=== PATIENT | male | born 1950 | race Caucasian/White ===

== ENCOUNTER → 2016-03-20 | Outpatient (CLI) | payer OTHER ==
[~2016-03-20] MED LIST: ACTO30TA7 PO; AMLO2.5T PO; ASPI32ECTA PO; DONETAB5 PO; FARX1TAB2 PO; FISH100049 PO; GLYB5TA PO; HUMA100I5 SC; INSUDET SC; LISI40TAB PO; MELO15TA4 PO; MEMA1TAB PO; METF500T PO; MULT1TAB11 PO; PRIM250T PO; SIMV20TA2 PO; TRAZ10TA PO; TYLE500T78 PO; VITA-121 PO; VITA250L PO
[2016-03-20 10:58] LABS: MEAN CORPUSCULAR HEMOGLOBIN 29.1 pg (27.0-33.0); MEAN CORPUSCULAR HGB CONC 33.9 g/dl (32.0-36.5); MEAN CORPUSCULAR VOLUME 85.8 fl (80.0-96.0); RED CELL DISTRIBUTION WIDTH 14.8 % (11.5-14.5); WHITE BLOOD COUNT 4.5 K/mm3 (4.0-10.0)
[2016-03-20 11:04] LABS: INR 0.89
--- NOTE | 2016-03-20 11:13 | REP ---
Chest two views HISTORY: Sleep apnea Comparison: 10/28/2015 The lungs are clear. The heart is upper limits of normal in size. The pulmonary vasculature is normal in appearance. The bony structure is intact. IMPRESSION: No acute disease. Signed by Louis Romo MD 03/20/2016 11:05 A
[2016-03-20 11:31] LABS: ALBUMIN/GLOBULIN RATIO 1.54 (1.00-1.93); ALKALINE PHOSPHATASE 86 U/L (45-117); ALT/SGPT 30 U/L (12-78); ANION GAP 7 MEQ/L (8-16); AST/SGOT 19 U/L (15-37); BILIRUBIN,TOTAL 0.4 MG/DL (0.2-1.0); BLOOD UREA NITROGEN 20 MG/DL (7-18); CALCIUM LEVEL 9.1 MG/DL (8.8-10.2); CARBON DIOXIDE LEVEL 27 MEQ/L (21-32); CHLORIDE LEVEL 107 MEQ/L (98-107); CREATININE FOR GFR 1.14 MG/DL (0.70-1.30); GLOMERULAR FILTRATION RATE > 60.0 (>49); GLUCOSE, FASTING 169 MG/DL (80-110); POTASSIUM SERUM 4.6 MEQ/L (3.5-5.1); SODIUM LEVEL 141 MEQ/L (136-145); TOTAL PROTEIN 6.6 GM/DL (6.4-8.2)
--- NOTE | 2016-03-20 13:32 | ECGEPIP ---
Stationary ECG Study [facility] Test Date: 2016-03-20 Pat Name: CONSTANCE MOSELEY Department: Room: - Gender: M [address] Reporter: [place] : 1950 Requested By: Sky Durant Order Number: [id number] Reading MD: Steven Badillo Measurements Intervals [place] Rate: 63 P: 77 DE: 264 QRS: -23 QRSD: 124 T: 24 QT: 382 QTc: 391 Interpretive Statements SINUS RHYTHM WITH FIRST DEGREE AV BLOCK BORDERLINE LEFT AXIS DEVIATION RIGHT BUNDLE BRANCH BLOCK Electronically Signed On 03-20-2016 13:32:03 EST by Steven Badillo
== END ==
LOC: EDSTATUS 09:30 → M ADMPAT 09:31
PROVIDERS: ATTEND Orthopaedic Surgery
DX: Z01.818 Encounter for other preprocedural examination (principal)

== ENCOUNTER 2016-03-31 10:33 | Inpatient (IN) | payer OTHER ==
[2016-03-20 10:41] VITALS: BP 146/86
--- NOTE | 2016-03-27 16:55 | HPE ---
DATE OF ADMISSION: 03/31/2016 CHIEF COMPLAINT: Left knee pain. HISTORY OF PRESENT ILLNESS: This is a pleasant 66-year-old male with progressively worsening left knee pain and stiffness. He has failed to improve with conservative treatment. He has elected for surgery for his continued symptoms. He has pain with weightbearing activities and his activities of daily living. X-rays of his knee are notable for advanced osteoarthritis of the left knee joint. He has consented for a left total knee arthroplasty by Dr. Bhargav Arguello. Medical optimization was performed by KB Hall. ALLERGIES: No known drug allergies. CURRENT MEDICATIONS: - lisinopril 40 mg once a day - amlodipine 2.5 mg once a day - fish oil 1000 mg one capsule once a day - metformin HCl 500 mg two tablets twice a day - glyburide 5 mg two tablets twice a day - Actos 15 mg once a day - Farxiga 10 mg once a day - NovoLog FlexPen 100 units per mL - Levemir 100 units per mL solution 42 subcutaneous units at bedtime - trazodone 100 mg once at bedtime - primidone 250 mg twice a day - donepezil hydrochloride 10 mg once at bedtime - memantine HCl 5 mg twice a day - Mobic15 mg once a day - ibuprofen 200 mg one every six hours as needed - acetaminophen 500 mg one every six hours as needed - vitamin D3 5000 units once a day - vitamin B12 1000 mcg once a day - multivitamin PAST SURGICAL HISTORY: Left knee arthrotomy status post trauma in 1953, right knee arthroscopy in 1972, and colonoscopy in 2014. SOCIAL HISTORY: This gentleman is retired. He does not smoke or drink. FAMILY HISTORY: Noncontributory. REVIEW OF SYSTEMS: This patient denies chest pain, heart palpitations, cough, wheezing, difficulty breathing and shortness of breath. He denies abdominal pain, nausea, vomiting, diarrhea or constipation. He denies recent upper respiratory infection or urinary tract infection symptoms. He does complain of persistent pain in his left knee and pain with weightbearing activities in his left knee. PHYSICAL EXAMINATION: GENERAL: He is a well-nourished, well-developed, in no acute distress, adult male. He ambulates with a significant limp favoring his left lower extremity. He is not using assistive devices. VITAL SIGNS: He is 6 feet, 2 inches, weighs 345 pounds with a temperature of 96.7, blood pressure 168/78, pulse of 100, respirations of 20 with a body mass index (BMI) of 44.3. NECK: Supple without adenopathy or jugular venous distension. There were no carotid bruits appreciated upon auscultation. LUNGS: Clear to auscultation without rales or wheeze throughout. HEART: Regular rate and rhythm. ABDOMEN: Bowel sounds were present. EXTREMITIES: Examination of the knee revealed intact skin. The patient had decreased range of motion secondary to pain and stiffness. The limb is neurovascularly intact. LABORATORY DATA: Chest x-ray showed no acute cardiopulmonary disease processes. EKG showed sinus rhythm with first-degree AV block at 63 beats per minute. Nasal and sinus culture showed normal haley. CBC showed a red cell distribution width of 14.8, otherwise within normal limits. Sedimentation rate was 2, glucose 169, BUN 20, creatinine 1.14, sodium 141, potassium 4.6. UA showed 3+ glucose, otherwise within normal limits with a specific gravity 1.011. Prothrombin time 12.1, INR 0.89. IMPRESSION: Symptomatic osteoarthritis of the left knee joint. PLAN: Consented for a left total knee arthroplasty by Dr. Bhargav Arguello.
[~2016-03-31] VITALS: Ht 188 cm; Wt 152.4 kg
[~2016-03-31 10:33] MED LIST changes: -PRIM250T PO; +PRIM250T5 PO
[2016-03-31] MEDS ORDERED: ceFAZolin 2 GM/D5W 50 ML IV BAG (J0690) As Ordered ONE (10:53)
[2016-03-31] MEDS ORDERED: LR 1,000 ML IV SCH (11:00)
[2016-03-31] MEDS ORDERED: ACETAMINOPHEN 500 MG TAB PO ONE (11:00)
[2016-03-31] MEDS ORDERED: ROPIvacaine 0.5% 30 ML INJECTION (J2795) As Ordered ONE (12:30)
[2016-03-31] MEDS ORDERED: BUPIVACAINE HCL 0.25% 10 ML VIAL As Ordered ONE (12:30)
[2016-03-31] MEDS ORDERED: TRANEXAMIC ACID 100 MG/ML 10ML VIAL As Ordered ONE (12:30)
[2016-03-31] MEDS ORDERED: ceFAZolin 1GM INJ (J0690) As Ordered ONE (12:31)
[2016-03-31] MEDS ORDERED: EPINEPHrine INJ 1 MG/ML 1ML VIAL/AMP As Ordered ONE (12:31)
[2016-03-31] MEDS ORDERED: fentaNYL 100 MCG/2 ML INJECTION (J3010) As Ordered ONE ×3 (12:49→14:21)
[2016-03-31] MEDS ORDERED: MIDAZOLAM INJ 2 MG/2 ML VIAL (J2250) As Ordered ONE ×2 (12:49→12:57)
[2016-03-31] MEDS ORDERED: PROPOFOL 200 MG/20 ML VIAL As Ordered ONE ×2 (12:59→15:35)
[2016-03-31] MEDS ORDERED: LIDOCAINE 2% INJ 100 MG/5 ML SDV (FOR ANES.) As Ordered ONE (12:59)
[2016-03-31] MEDS ORDERED: fentaNYL 100 MCG/2 ML INJECTION (J3010) IV ONE (14:00)
[2016-03-31] MEDS ORDERED: MIDAZOLAM INJ 2 MG/2 ML VIAL (J2250) IV ONE (14:00)
[2016-03-31] MEDS ORDERED: BUPIVACAINE HCL 0.5% 10 ML VIAL As Ordered ONE (14:20)
[2016-03-31] MEDS ORDERED: METOCLOPRAMIDE INJ 10MG/2ML VIAL (J2765) As Ordered ONE (15:13)
[2016-03-31] MEDS ORDERED: ONDANSETRON 4MG/2ML VIAL (J2405) As Ordered ONE (15:35)
[2016-03-31] MEDS ORDERED: MORPHINE PCA 1MG/ML 100ML CADD As Ordered ONE (16:24)
[2016-03-31] MEDS ORDERED: FLEET ENEMA PR PRN (17:00)
[2016-03-31] MEDS ORDERED: PATIENT IS CURRENTLY ON AN ON-Q PAIN BUSTER PAIN RELIEF SYSTEM XX SCH (17:15)
[2016-03-31] MEDS ORDERED: diphenhydrAMINE INJ 50MG/ML VIAL (J1200) IV PRN (17:30)
[2016-03-31] MEDS ORDERED: ONDANSETRON 4MG/2ML VIAL (J2405) IV PRN (17:30)
[2016-03-31] MEDS ORDERED: EPIDURAL/PCA KEYS XX PRN (17:30)
[2016-03-31] MEDS ORDERED: NALOXONE INJ 0.4 MG/1 ML VIAL (J2310) IV PRN (17:30)
[2016-03-31] MEDS ORDERED: NALBUPHINE HCL 10 MG/ML AMP (J2300) IV PRN (17:30)
[2016-03-31] MEDS ORDERED: MORPHINE PCA 1MG/ML 100ML CADD IV PRN (17:30)
[2016-03-31 17:50] VITALS: BP 164/72
[2016-03-31 18:30] VITALS: BP 192/89
[2016-03-31] MEDS: HumuLIN R (REGULAR) INSULIN (NovoLIN R) **100U/ML** PER UNIT SC SCH ×2 (19:21→21:25)
[2016-03-31 19:30] VITALS: BP_SYST 177; BP_SYST 189; BP_DIAS 87; BP_DIAS 88
[2016-03-31 20:30] VITALS: BP 177/87
[2016-03-31] MEDS: SENOKOT S TAB PO SCH (20:31)
[2016-03-31] MEDS: LR 1,000 ML IV SCH (20:31)
[2016-03-31] MEDS ORDERED: WARFARIN SOD 5 MG TAB PO SCH (21:00)
[2016-03-31] MEDS: MEMANTINE 5MG TABLET (NAMENDA) PO SCH (21:00)
[2016-03-31] MEDS ORDERED: ATORVASTATIN 20 MG TAB PO SCH (21:00)
[2016-03-31] MEDS: traZODone 100 MG TAB PO SCH (21:00)
--- NOTE | 2016-03-31 21:22 | CR ---
DATE OF CONSULTATION: 03/31/2016 CONSULTATION REPORT FOR: Dr. Sky Arguello PRIMARY CARE PROVIDER: Sophie Flores HEAD WAITRESS: Dr. Tijerina UROLOGIST: Dr. Garcia REASON FOR CONSULTATION: Medical management. HISTORY OF THE PRESENT ILLNESS: This is a 66-year-old male patient with underlying medical history of hypertension, dyslipidemia, insulin-dependent type 2 diabetes, obesity, coronary artery disease, cerebrovascular accident 4 years ago with mild right-sided residual weakness. The patient was admitted under orthopedic service for left total knee replacement surgery by Dr. Sky Arguello. Currently, the patient is status post surgery. Denies any chest pain, pressure or discomfort. Denies any shortness of breath. Comfortable. 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 Baseline ambulatory. ALLERGIES: The patient denies any drug or medication allergies. PAST MEDICAL HISTORY: Hypertension. Dyslipidemia. Cerebrovascular accident. Type 2 insulin-dependent diabetes. Obesity. Coronary artery disease. PAST SURGICAL HISTORY: Left knee arthroscopy, status post trauma 1952. Right knee arthroscopy 1972. Colonoscopy 2014. SOCIAL HISTORY: Retired. Quit smoking 40 years ago and does not drink alcoholic beverages. FAMILY HISTORY: Noncontributory. REVIEW OF SYSTEMS: 11-point review of systems was negative except for those mentioned in the history of the present illness. Persistent pain with left knee. Pain with weightbearing activity. HOME MEDICATIONS: - acetaminophen 500 mg by mouth as needed - Norvasc 2.5 mg by mouth nightly - aspirin 325 mg by mouth daily - vitamin D 5000 units by mouth daily - vitamin B12 1000 mcg by mouth daily - Farxiga 5 mg by mouth daily - donepezil 5 mg by mouth daily - fish oil one capsule by mouth daily - Glyburide 10 mg by mouth twice a day - Levemir insulin 42 units by mouth subcu nightly - NovoLog insulin via sliding scale before food, usually around 12 units - lisinopril 40 mg by mouth daily - meloxicam 15 mg by mouth daily - Memantine 5 mg by mouth twice a day - metformin 1000 mg by mouth twice a day - multivitamin one capsule by mouth daily - Actos 15 mg by mouth daily - primidone 250 mg by mouth twice a day - Zocor 20 mg by mouth daily - trazodone 100 mg by mouth nightly PHYSICAL EXAMINATION: GENERAL: Patient alert and oriented times three, in no acute distress. HEENT: Normocephalic, atraumatic. PULMONARY: Bilaterally clear to auscultation. CARDIAC: Regular rate and rhythm. Normal S1, S2. ABDOMEN: Soft, nontender, nondistended. Positive bowel sounds. EXTREMITIES: Bilateral dorsalis pedis (DP), posterior tibial (PT) pulses 2+. No leg edema bilateral lower extremities. Dressing clean, dry and intact. ASSESSMENT AND PLAN: This is a 66-year-old male patient with underlying medical history of hypertension, diabetes type 2, dyslipidemia, coronary artery disease, cerebrovascular disease, osteoarthritis, admitted under orthopedic service for left total knee replacement. Procedure done by Dr. Sky Arguello. Problems: 1. Osteoarthritis. Status post left total knee replacement, done by Dr. Sky Arguello. Deep vein thrombosis prophylaxis, pain regimen, physical therapy as per surgical team. Perioperative management as per surgical team. Patient currently on Coumadin for DVT prophylaxis. Bowel regimen has been added. 2. Hypertension. Continue Norvasc, lisinopril. Monitor kidney functions. Adjust medication as needed. 3. Type 2 insulin-dependent diabetes. Withholding oral medications. Continue Levemir for basal coverage as well as mealtime coverage. Adjust as needed. 4. Dyslipidemia. Continue home medication, statin. 5. Cerebrovascular disease. Patient on Coumadin for DVT prophylaxis. Will cut aspirin to 81 mg and continue Coumadin. Continue statin. Monitor blood pressure. 6. Coronary artery disease. Continue blood pressure medication as ordered. Continue aspirin, statin. Monitor blood sugars. 7. Deep vein thrombosis (DVT) prophylaxis. The patient is on Coumadin as per primary team. DISPOSITION: As per primary team.
[2016-03-31] MEDS: PRIMIDONE 250 MG TAB PO SCH (21:24)
[2016-03-31] MEDS: LEVEMIR (INSULIN DETEMIR) 1 UNITS/0.01ML SC SCH (21:26)
[2016-03-31 21:30] VITALS: BP 170/77
[2016-03-31] MEDS: ACETAMINOPHEN TAB 650MG DOSE (2X325MG) PO PRN (22:21)
[2016-04-01] MEDS: ACETAMINOPHEN TAB 650MG DOSE (2X325MG) PO PRN (02:05)
[2016-04-01 02:30] VITALS: BP 158/75
[2016-04-01] MEDS: LR 1,000 ML IV SCH (05:30)
[2016-04-01 06:00] VITALS: BP 173/81
[2016-04-01] MEDS ORDERED: ONDANSETRON 4 MG TAB (S0181) PO PRN (06:30)
[2016-04-01 06:49] LABS: MEAN CORPUSCULAR HEMOGLOBIN 29.2 pg (27.0-33.0); MEAN CORPUSCULAR HGB CONC 34.2 g/dl (32.0-36.5); MEAN CORPUSCULAR VOLUME 85.4 fl (80.0-96.0); RED CELL DISTRIBUTION WIDTH 13.8 % (11.5-14.5); WHITE BLOOD COUNT 7.1 K/mm3 (4.0-10.0)
[2016-04-01 07:04] LABS: ANION GAP 9 MEQ/L (8-16); BLOOD UREA NITROGEN 19 MG/DL (7-18); CARBON DIOXIDE LEVEL 24 MEQ/L (21-32); CHLORIDE LEVEL 105 MEQ/L (98-107); CREATININE FOR GFR 1.01 MG/DL (0.70-1.30); GLOMERULAR FILTRATION RATE > 60.0 (>49); GLUCOSE, FASTING 161 MG/DL (80-110); INR 1.09; POTASSIUM SERUM 4.2 MEQ/L (3.5-5.1); SODIUM LEVEL 138 MEQ/L (136-145)
--- NOTE | 2016-04-01 07:21 | RO ---
DATE OF PROCEDURE: 03/31/2016 PREOPERATIVE DIAGNOSIS: Left knee valgus degenerative arthritis. POSTOPERATIVE DIAGNOSIS: Left knee valgus degenerative arthritis. PROCEDURE: Left total knee arthroplasty using a size 5 cruciate retaining femoral component with size 5 tibial tray with 10 mm rotating platform polyethylene insert and a 35 mm polyethylene button. All components were cemented. The prosthesis was made by [employer]. It was a PFC knee. SURGEON: Sky Cook MD PRINCIPAL JAVA DEVELOPER: Aline Moon ANESTHESIA: Spinal. COMPLICATIONS: None. ESTIMATED BLOOD LOSS: Less than 20 mL. SPECIMENS: Joint surface. DRAINS: One PainBuster. DESCRIPTION OF PROCEDURE: Antibiotics were given intravenously preoperatively, then a successful spinal anesthetic was induced. Tourniquet placed on left upper thigh and not inflated. Left lower extremity was prepped and draped in the usual sterile fashion. Leg elevated, and then after appropriate time out the tourniquet was inflated. A longitudinal incision was made. We tried to incorporate the previous scar for a medial parapatellar approach to the knee. Limited subperiosteal dissection around the proximal medial portion of the tibia was performed because of his overall valgus alignment. He did have significant scarring along the medial and lateral capsules making it somewhat difficult to dissect but eventually we were able to reestablish normal tissue planes. The patella was everted and the knee flexed. The cartilage around the medial femoral condyle was denuded to make sure that the distal femoral cutting jig would sit flush against the two condyles, and then we drilled down the center of the femoral canal, then the intramedullary joe with the distal femoral cutting jig applied was placed. It was set at 5 degree valgus cut for a left knee at 10 mm resection level. It is noteworthy that his femoral canal was quite capacious and the joe had some play within the femoral canal. The jig was pinned into position. The distal femoral cuts performed. AP sizing jig measured right on a #5. The 3 degree external rotation block was placed and the 4-in-1 block applied, and Danika's line and an epicondylar access appeared to be parallel to the floor and Danika's line was seen to be 90 degrees the external rotation seemed to be appropriate. We then performed the anterior, posterior, chamfer cuts taking great care to protect the surrounding soft tissues. We then exposed the proximal tibia and used the extramedullary alignment jig to be sure we were parallel to the mechanical axis. We measured off both the lateral tibial condyle and the medial tibial condyle. It came out at about 4 mm resection level on each side and about symmetric and thus, the block was pinned in position. Secondary check with the extramedullary joe confirmed we were parallel and thus, we performed the proximal tibial osteotomy. We then placed the lamina digital marketing project manager laterally and performed a completion medial meniscectomy and debridement of the posterior medial osteophytes, then placed the lamina digital marketing project manager medially and performed a debridement of the posterior lateral osteophytes and completion of the lateral meniscectomy. Spacer blocks were then applied and actually the 10 mm in flexion and 11 mm in extension fit nicely. I was surprised that there was not excessive lateral tightness. We had a fairly balanced knee to varus, valgus stress testing both in flexion and in extension. Thus, I felt the cuts were appropriate. The posterior cruciate ligament (PCL) was firm. There was no need to do a PCL resection, I do not feel, and thus at this point, I exposed the proximal tibia, sized for a #5 tibial tray, which is pinned, reamed and broach into position, and placed the polyethylene, then placed the femoral component and brought the knee into extension. Again, it was very stable to varus, valgus stress testing in both flexion and in extension. Then, we brought the knee into extension, everted the patella and performed patellar osteotomy. Sized for a 35 button. The lug holes were drilled. Trial patellar button was placed and the patellofemoral tracking was actually anatomic. Thus, I could flex the knee up and there was not any excessive liftoff of the tibial tray anteriorly. Thus, I felt this was the appropriate size and components used. All the trials were removed after drilling the lug holes for the femur. Then, Aline Moon mixed the cement on the back table; also was helpful throughout the operation to help manage this fairly large leg, help with appropriate soft tissue retraction and manipulating the knee as needed, helping to close the wound, amongst other tasks to help me perform the operation smoothly and efficiently. I prepared the bony surfaces for cementing by copiously pulsatile lavage irrigating out the knee joint, drying all the surfaces thoroughly, cemented the tibial tray and removed excess cement, placed the polyethylene. Then, we cemented the femoral component and removed excess cement, brought the knee into extension and then cemented the patellar button, held it with a clamp until the cement had hardened. Copious amount of pulsatile lavage irrigant solution was placed in the knee as we were waiting for the cement to harden. Then, we placed the tranexamic acid. We then closed the apex of the tendon incision with two #1 PDS sutures. The medial parapatellar area was closed with a single #1 PDS suture. Then, we closed the capsule with a running double armed #1 Stratafix, then released the tourniquet, placed the PainBuster catheter, copiously pulsatile lavage, irrigated out the subdermal tissues and then closed the deep subdermal tissues with interrupted #2-0 PDS suture. The skin was closed with ene, covered by Adaptic, dry sterile bulky dressing. He was then transferred to the recovery room in stable condition. There were no intraoperative complications. MARVEL
[2016-04-01] MEDS: HumuLIN R (REGULAR) INSULIN (NovoLIN R) **100U/ML** PER UNIT SC SCH ×4 (07:56→21:00)
[2016-04-01] MEDS: CYANOCOBALAMIN 250 MCG TABLET PO SCH (07:57)
[2016-04-01] MEDS: PRIMIDONE 250 MG TAB PO SCH ×2 (07:57→21:01)
[2016-04-01] MEDS: MEMANTINE 5MG TABLET (NAMENDA) PO SCH ×2 (07:58→21:02)
[2016-04-01] MEDS: OCUVITE 1 TAB PO SCH (07:58)
[2016-04-01] MEDS: LISINOPRIL 40 MG TAB PO SCH (07:58)
[2016-04-01] MEDS: VITAMIN D 1,000 INTERNATIONAL UNITS TABLET PO SCH (07:58)
[2016-04-01] MEDS: SENOKOT S TAB PO SCH ×2 (07:58→21:02)
[2016-04-01] MEDS: DONEPEZIL 5 MG TAB PO SCH (07:59)
[2016-04-01] MEDS: MOM 30ML SUSPENSION UDC PO SCH (07:59)
[2016-04-01] MEDS: MIRALAX *UNIT DOSE* 17GM PACKET PO SCH (08:00)
[2016-04-01] MEDS: PERCOCET 5MG/325MG TAB PO PRN ×4 (08:00→21:50)
[2016-04-01] MEDS: ASPIRIN 81 MG ENTERIC TAB PO SCH (08:03)
[2016-04-01 10:00] VITALS: BP 152/70
[2016-04-01] MEDS ORDERED: ROPIvacaine 0.5% 30 ML INJECTION (J2795) ONE (10:10)
[2016-04-01] MEDS ORDERED: dexameTHASONE 10 MG/1 ML VIAL PRES.FREE (J1100) ONE (10:10)
--- NOTE | 2016-04-01 12:04 | REP ---
AP LATERAL LEFT KNEE, TWO VIEWS: HISTORY: Knee replacement. COMPARISON: 02/27/2016 The patient is status post left total knee replacement. There is no acute fracture or dislocation. Surgical ene and subcutaneous air are present in the overlying soft tissue. IMPRESSION: The patient is status post left total knee replacement. There is anatomic alignment. Signed by Louis Romo MD 04/01/2016 12:13 P
[2016-04-01 14:00] VITALS: BP 143/66
[2016-04-01] MEDS ORDERED: WARFARIN SOD 5 MG TAB PO ONE (17:00)
[2016-04-01] MEDS: traZODone 100 MG TAB PO SCH (21:00)
[2016-04-01] MEDS: SIMVASTATIN 20 MG TAB PO SCH (21:01)
[2016-04-01] MEDS: LEVEMIR (INSULIN DETEMIR) 1 UNITS/0.01ML SC SCH (21:04)
[2016-04-01 22:18] VITALS: BP 159/71
[2016-04-02] VITALS: BP 143/66
[2016-04-02] MEDS: PERCOCET 5MG/325MG TAB PO PRN ×5 (04:36→22:35)
[2016-04-02 06:08] VITALS: BP 135/63
[2016-04-02 07:25] LABS: INR 1.27
[2016-04-02 07:26] LABS: MEAN CORPUSCULAR HEMOGLOBIN 28.5 pg (27.0-33.0); MEAN CORPUSCULAR HGB CONC 33.4 g/dl (32.0-36.5); MEAN CORPUSCULAR VOLUME 85.4 fl (80.0-96.0); RED CELL DISTRIBUTION WIDTH 13.8 % (11.5-14.5); WHITE BLOOD COUNT 7.4 K/mm3 (4.0-10.0)
[2016-04-02 07:41] LABS: ANION GAP 10 MEQ/L (8-16); BLOOD UREA NITROGEN 15 MG/DL (7-18); CARBON DIOXIDE LEVEL 25 MEQ/L (21-32); CHLORIDE LEVEL 102 MEQ/L (98-107); CREATININE FOR GFR 1.02 MG/DL (0.70-1.30); GLOMERULAR FILTRATION RATE > 60.0 (>49); GLUCOSE, FASTING 156 MG/DL (80-110); POTASSIUM SERUM 3.9 MEQ/L (3.5-5.1); SODIUM LEVEL 137 MEQ/L (136-145)
[2016-04-02] MEDS: HumuLIN R (REGULAR) INSULIN (NovoLIN R) **100U/ML** PER UNIT SC SCH ×4 (08:03→21:00)
[2016-04-02] MEDS: VITAMIN D 1,000 INTERNATIONAL UNITS TABLET PO SCH (08:04)
[2016-04-02] MEDS: OCUVITE 1 TAB PO SCH (08:04)
[2016-04-02] MEDS: MIRALAX *UNIT DOSE* 17GM PACKET PO SCH (08:04)
[2016-04-02] MEDS: MOM 30ML SUSPENSION UDC PO SCH (08:04)
[2016-04-02] MEDS: CYANOCOBALAMIN 250 MCG TABLET PO SCH (08:04)
[2016-04-02] MEDS: SENOKOT S TAB PO SCH ×2 (08:05→21:24)
[2016-04-02] MEDS: LISINOPRIL 40 MG TAB PO SCH (08:05)
[2016-04-02] MEDS: ASPIRIN 81 MG ENTERIC TAB PO SCH (08:05)
[2016-04-02] MEDS: DONEPEZIL 5 MG TAB PO SCH (08:05)
[2016-04-02] MEDS: PRIMIDONE 250 MG TAB PO SCH ×2 (08:05→21:24)
[2016-04-02] MEDS: MEMANTINE 5MG TABLET (NAMENDA) PO SCH ×2 (08:05→21:24)
--- NOTE | 2016-04-02 11:28 | IPNPDOC ---
Assessment/Plan Date Seen The patient was seen on 04/02/16. Problems Problems: (1) Status post left knee replacement Status: Acute Problem Text: had elective knee arthroplasty done for advanced osteoarthritis. procedure was uneventful. pain control and dvt prophylaxis as per ortho protocol (2) KRISHNA on CPAP Status: Chronic (3) Obesities, morbid Status: Chronic (4) Hypertension Status: Chronic Problem Text: continue lisinopril and amlodipine (5) Diabetes Status: Chronic Problem Text: continue insulin and sulphonurea. (6) Dementia Status: Chronic Problem Text: possibly has multiinfarct dementia with history of stroke and tias. will continue with donepezil and memantine. (7) History of CVA (cerebrovascular accident) Status: Chronic Problem Text: continue asa, can hold plavix while pat on dvt prophylaxis with coumadin. (8) Dyslipidemia Status: Chronic Problem Text: continue simvastatin. (9) CAD (coronary artery disease) Status: Chronic Plan / VTE VTE Prophylaxis Ordered?: Yes Subjective Review of Systems CC/HPI The patient is a 66-year-old male admitted with a reason for visit of Left Knee Arthritis. Events since last encounter no complaints this morning. Objective Physical Examination General Exam: Positive: Alert, No Acute Distress Eye Exam: Positive: Conjunctiva & lids normal, EOMI, PERRLA, Negative: Sclera icteric ENT Exam: Positive: Atraumatic, Mucous membr. moist/pink, Pharynx Normal Neck Exam: Positive: Supple, Negative: JVD, thyromegaly Chest Exam: Positive: Clear to auscultation, Normal air movement Heart Exam: Positive: Normal S1, Normal S2, Rate Normal, Regular Rhythm, Negative: Murmurs, Rubs Abdomen Exam: Positive: Normal bowel sounds, Soft, Negative: Hepatospenomegaly, Tenderness Extremity Exam: Positive: Normal pulses, Negative: Clubbing, Cyanosis, Edema Vital Signs/I&O Vital Signs Date Time Temp Pulse Resp B/P Pulse Ox O2 Delivery O2 Flow Rate FiO2 04/02/16 08:56 18 04/02/16 06:08 99.9 77 135/63 91 Room Air 04/01/16 06:00 2.0 I&O- Last 24 Hours up to 6 AM 04/02/16 06:00 Intake Total 2360 ml Output Total 1675 ml Balance 685 ml Laboratory Data Labs 24H Laboratory Tests 2 04/01/16 11:45: Bedside Glucose (Misc Panel) 163H 04/01/16 17:13: Bedside Glucose (Misc Panel) 137H 04/01/16 19:36: Bedside Glucose (Misc Panel) 142H 04/02/16 05:52: Bedside Glucose (Misc Panel) 163H 04/02/16 06:21: Anion Gap 10, Blood Urea Nitrogen 15, Creatinine 1.02, Sodium Level 137, Potassium Level 3.9, Chloride Level 102, Carbon Dioxide Level 25, Calcium Level 8.0L, Glomerular Filtration Rate > 60.0, Prothromb Time International Ratio 1.27 , Prothrombin Time 16.0H CBC/BMP Laboratory Tests 04/02/16 06:21 Calcium Level 8.0 L, Red Blood Count 4.71, Mean Corpuscular Volume 85.4, Mean Corpuscular Hemoglobin 28.5, Mean Corpuscular Hemoglobin Concent 33.4, Red Cell Distribution Width 13.8 FSBS Laboratory Tests Test 04/01/16 11:45 04/01/16 17:13 04/01/16 19:36 04/02/16 05:52 Range/Units Bedside Glucose (Misc Panel) 163 137 142 163 80-115 MG/DL ROWAN PIEDRA MD Apr 02, 2016 11:28
[2016-04-02 14:00] VITALS: BP 140/63
[2016-04-02] MEDS ORDERED: WARFARIN SOD 7.5 MG TAB PO ONE (17:00)
[2016-04-02] MEDS: traZODone 100 MG TAB PO SCH (21:00)
[2016-04-02 21:24] VITALS: BP 180/85
[2016-04-02] MEDS: LEVEMIR (INSULIN DETEMIR) 1 UNITS/0.01ML SC SCH (21:24)
[2016-04-02] MEDS: SIMVASTATIN 20 MG TAB PO SCH (21:25)
[2016-04-02 22:00] VITALS: BP 180/85
[2016-04-03] MEDS: PERCOCET 5MG/325MG TAB PO PRN ×2 (02:45→08:18)
[2016-04-03 06:00] VITALS: BP 139/63
[2016-04-03 06:52] LABS: MEAN CORPUSCULAR HEMOGLOBIN 29.5 pg (27.0-33.0); MEAN CORPUSCULAR HGB CONC 33.7 g/dl (32.0-36.5); MEAN CORPUSCULAR VOLUME 87.5 fl (80.0-96.0); RED CELL DISTRIBUTION WIDTH 14.8 % (11.5-14.5); WHITE BLOOD COUNT 6.9 K/mm3 (4.0-10.0)
[2016-04-03 07:07] LABS: ANION GAP 9 MEQ/L (8-16); BLOOD UREA NITROGEN 15 MG/DL (7-18); CALCIUM LEVEL 8.2 MG/DL (8.8-10.2); CARBON DIOXIDE LEVEL 26 MEQ/L (21-32); CHLORIDE LEVEL 102 MEQ/L (98-107); CREATININE FOR GFR 1.03 MG/DL (0.70-1.30); GLOMERULAR FILTRATION RATE > 60.0 (>49); GLUCOSE, FASTING 173 MG/DL (80-110); INR 1.38; POTASSIUM SERUM 4.1 MEQ/L (3.5-5.1); SODIUM LEVEL 137 MEQ/L (136-145)
[2016-04-03] MEDS: HumuLIN R (REGULAR) INSULIN (NovoLIN R) **100U/ML** PER UNIT SC SCH (07:30)
[2016-04-03] MEDS ORDERED: PERC5TAB6 PO (07:39)
[2016-04-03] MEDS ORDERED: COUM2.5T11 PO (07:39)
[2016-04-03] MEDS ORDERED: ENOXAPARIN 40 MG/0.4 ML SYRINGE (J1650) SC ONE (08:00)
[2016-04-03] MEDS: CYANOCOBALAMIN 250 MCG TABLET PO SCH (08:15)
[2016-04-03] MEDS: ASPIRIN 81 MG ENTERIC TAB PO SCH (08:15)
[2016-04-03] MEDS: OCUVITE 1 TAB PO SCH (08:16)
[2016-04-03] MEDS: DONEPEZIL 5 MG TAB PO SCH (08:16)
[2016-04-03] MEDS: MEMANTINE 5MG TABLET (NAMENDA) PO SCH (08:16)
[2016-04-03] MEDS: LISINOPRIL 40 MG TAB PO SCH (08:16)
[2016-04-03] MEDS: VITAMIN D 1,000 INTERNATIONAL UNITS TABLET PO SCH (08:16)
[2016-04-03] MEDS: PRIMIDONE 250 MG TAB PO SCH (08:17)
[2016-04-03] MEDS: MIRALAX *UNIT DOSE* 17GM PACKET PO SCH (09:00)
[2016-04-03] MEDS: MOM 30ML SUSPENSION UDC PO SCH (09:00)
[2016-04-03] MEDS: SENOKOT S TAB PO SCH (09:00)
== END 2016-04-03 12:32 | disposition home health service (06) | DRG 470 ==
LOC: M OR 10:33 → M MS5PR 16:28
PROVIDERS: ADMIT Orthopaedic Surgery; ATTEND Orthopaedic Surgery
PROC: 0SRD0J9 Replacement of Left Knee Joint with Synthetic Substitute, Cemented, Open Approach (ICD-10-PCS; principal; 2016-03-31 12:10)
DX: M17.12 Unilateral primary osteoarthritis, left knee (principal); Z68.42 Body mass index [BMI] 45.0-49.9, adult; R26.89 Other abnormalities of gait and mobility; E11.9 Type 2 diabetes mellitus without complications; I10 Essential (primary) hypertension; E78.2 Mixed hyperlipidemia; G47.33 Obstructive sleep apnea (adult) (pediatric); F03.90 Unspecified dementia, unspecified severity, without behavioral disturbance, psychotic disturbance, mood disturbance, and anxiety; I69.318 Other symptoms and signs involving cognitive functions following cerebral infarction; E66.01 Morbid (severe) obesity due to excess calories; R25.1 Tremor, unspecified; Z79.84 Long term (current) use of oral hypoglycemic drugs; Z79.4 Long term (current) use of insulin; Z79.899 Other long term (current) drug therapy; Z86.73 Personal history of transient ischemic attack (TIA), and cerebral infarction without residual deficits; Z87.891 Personal history of nicotine dependence

== ENCOUNTER → 2016-04-07 | Outpatient (REF) | payer OTHER ==
[~2016-04-07] MED LIST changes: +COUM2.5T11 PO; +PERC5TAB6 PO
[2016-04-07 14:00] LABS: INR 1.57
== END ==
LOC: M SHH 12:55
PROVIDERS: ATTEND Nurse Practitioner Family
DX: Z51.81 Encounter for therapeutic drug level monitoring (principal); Z79.01 Long term (current) use of anticoagulants

== ENCOUNTER → 2016-04-10 | Outpatient (REF) | payer OTHER ==
[2016-04-10 11:46] LABS: INR 1.65
== END ==
LOC: M LAB REF 11:13
PROVIDERS: ATTEND Nurse Practitioner Family
DX: Z79.01 Long term (current) use of anticoagulants (principal)

== ENCOUNTER → 2016-04-14 | Outpatient (REF) | payer OTHER ==
[2016-04-14 16:00] LABS: INR 1.4
== END ==
LOC: M LABDRAW1 15:39
PROVIDERS: ATTEND Nurse Practitioner Family
DX: Z79.01 Long term (current) use of anticoagulants (principal)

== ENCOUNTER → 2016-04-17 | Outpatient (REF) | payer OTHER ==
[2016-04-17 12:42] LABS: INR 1.54
== END ==
LOC: M SHH 12:05
PROVIDERS: ATTEND Nurse Practitioner Family
DX: Z51.81 Encounter for therapeutic drug level monitoring (principal); Z79.01 Long term (current) use of anticoagulants

== ENCOUNTER → 2016-04-21 | Outpatient (REF) | payer OTHER ==
[2016-04-21 15:30] LABS: INR 1.79
== END ==
LOC: M SHH 15:05
PROVIDERS: ATTEND Nurse Practitioner Family
DX: Z51.81 Encounter for therapeutic drug level monitoring (principal); Z79.01 Long term (current) use of anticoagulants

== ENCOUNTER → 2016-04-24 | Outpatient (REF) | payer OTHER ==
[2016-04-24 15:13] LABS: INR 1.77
== END ==
LOC: M SHH 14:47
PROVIDERS: ATTEND Nurse Practitioner Family
DX: Z79.01 Long term (current) use of anticoagulants (principal)

== ENCOUNTER → 2016-04-28 | Outpatient (REF) | payer OTHER ==
[2016-04-28 15:51] LABS: INR 1.85
== END ==
LOC: M SHH 14:39
PROVIDERS: ATTEND Nurse Practitioner Family
DX: Z79.01 Long term (current) use of anticoagulants (principal)

== ENCOUNTER → 2016-06-13 | Outpatient (REF) | payer OTHER ==
[2016-06-13 15:45] LABS: ALBUMIN 4.1 GM/DL (3.2-5.2); ALBUMIN/GLOBULIN RATIO 1.37 (1.00-1.93); ALKALINE PHOSPHATASE 91 U/L (45-117); ALT/SGPT 22 U/L (12-78); ANION GAP 9 MEQ/L (8-16); AST/SGOT 18 U/L (15-37); BILIRUBIN,TOTAL 0.4 MG/DL (0.2-1.0); BLOOD UREA NITROGEN 17 MG/DL (7-18); CALCIUM LEVEL 8.6 MG/DL (8.8-10.2); CARBON DIOXIDE LEVEL 29 MEQ/L (21-32); CHLORIDE LEVEL 102 MEQ/L (98-107); CHOLESTEROL LEVEL 155 MG/DL (<200); CREATININE FOR GFR 1.13 MG/DL (0.70-1.30); GLOMERULAR FILTRATION RATE > 60.0 (>49); GLUCOSE, FASTING 139 MG/DL (80-110); POTASSIUM SERUM 4.2 MEQ/L (3.5-5.1); SODIUM LEVEL 140 MEQ/L (136-145); TOTAL PROTEIN 7.1 GM/DL (6.4-8.2); TRIGLYCERIDES LEVEL 102 MG/DL (<150)
== END ==
LOC: M SFHCSACK 08:18
PROVIDERS: ATTEND Physician Assistant
DX: I10 Essential (primary) hypertension (principal); E78.2 Mixed hyperlipidemia; Z68.42 Body mass index [BMI] 45.0-49.9, adult

== ENCOUNTER → 2016-06-18 | Outpatient (REF) | payer OTHER | LOC: M SFHCSACK 14:32 | PROVIDERS: ATTEND Physician Assistant | DX: E11.9 Type 2 diabetes mellitus without complications (principal) ==

== ENCOUNTER → 2016-07-21 | Outpatient (REF) | payer OTHER ==
[2016-07-21 16:15] LABS: ALBUMIN 3.9 GM/DL (3.2-5.2); ALBUMIN/GLOBULIN RATIO 1.44 (1.00-1.93); ALKALINE PHOSPHATASE 93 U/L (45-117); ALT/SGPT 21 U/L (12-78); ANION GAP 8 MEQ/L (8-16); AST/SGOT 14 U/L (15-37); BILIRUBIN,TOTAL 0.2 MG/DL (0.2-1.0); BLOOD UREA NITROGEN 23 MG/DL (7-18); CALCIUM LEVEL 8.2 MG/DL (8.8-10.2); CARBON DIOXIDE LEVEL 26 MEQ/L (21-32); CHLORIDE LEVEL 108 MEQ/L (98-107); CREATININE FOR GFR 1.13 MG/DL (0.70-1.30); GLOMERULAR FILTRATION RATE > 60.0 (>49); GLUCOSE, FASTING 137 MG/DL (80-110); POTASSIUM SERUM 4.6 MEQ/L (3.5-5.1); SODIUM LEVEL 142 MEQ/L (136-145); TOTAL PROTEIN 6.6 GM/DL (6.4-8.2)
== END ==
LOC: M LABDRWSH 15:44
PROVIDERS: ATTEND Psychiatry & Neurology Neurology
DX: E11.9 Type 2 diabetes mellitus without complications (principal)

== ENCOUNTER → 2016-11-05 | Outpatient (CLI) | payer OTHER ==
[~2016-11-05] MED LIST changes: +ACTO30TA15 PO; -ACTO30TA7 PO; +ASPI325T24 PO; -ASPI32ECTA PO; -COUM2.5T11 PO; +COUM2.5T17 PO; -FARX1TAB2 PO; +FARX1TAB3 PO; -METF500T PO; +METF500T13 PO; +PERC5TAB12 PO; -PERC5TAB6 PO; -PRIM250T5 PO; +PRIM250T8 PO
--- NOTE | 2016-11-05 16:51 | REP ---
Duplex extremity venous ultrasound right lower extremity. History: Venous insufficiency, chronic. Findings: The deep veins are anechoic and fully compressible from the groin to the popliteal fossa in the right lower extremity on two-dimensional scanning. Color flow imaging is homogeneous. Spectral Doppler interrogation demonstrates intact respiratory variation in flow normal manual augmentation of flow. There is no evidence of DVT. Reflux findings: There is significant reflux greater than 0.5 seconds in duration in the anterior accessory greater saphenous vein. This measures 9.1 mm. There is reflux greater than 0.5 seconds in duration in the common femoral vein on the right. No other reflux is seen. The anterior accessory greater saphenous vein connects to the greater saphenous vein at the knee. Multiple collaterals are seen extending off of these two vessels. The greater saphenous vein measures 5.3 mm in AP dimension at the saphenofemoral junction, 3.6 mm at midthigh, and 5.2 mm distally. The lesser saphenous vein measures 2.8 mm in AP dimension and does not show reflux. Impression: Significant reflux seen in the anterior accessory greater saphenous vein and in the common femoral vein. Multiple collaterals are seen. Signed by John Martinez MD 11/05/2016 05:11 P
== END ==
LOC: M RAD 08:02
PROVIDERS: ATTEND Surgery Vascular Surgery
DX: I87.2 Venous insufficiency (chronic) (peripheral) (principal)

== ENCOUNTER → 2016-11-07 | Outpatient (REF) | payer OTHER ==
[2016-11-07 17:05] LABS: ALBUMIN 3.9 GM/DL (3.2-5.2); ALBUMIN/GLOBULIN RATIO 1.39 (1.00-1.93); ALKALINE PHOSPHATASE 81 U/L (45-117); ALT/SGPT 24 U/L (12-78); ANION GAP 8 MEQ/L (8-16); AST/SGOT 12 U/L (15-37); BILIRUBIN,TOTAL 0.4 MG/DL (0.2-1.0); BLOOD UREA NITROGEN 24 MG/DL (7-18); CALCIUM LEVEL 8.5 MG/DL (8.8-10.2); CARBON DIOXIDE LEVEL 26 MEQ/L (21-32); CHLORIDE LEVEL 108 MEQ/L (98-107); CREATININE FOR GFR 1.12 MG/DL (0.70-1.30); GLOMERULAR FILTRATION RATE > 60.0 (>49); GLUCOSE, FASTING 156 MG/DL (80-110); POTASSIUM SERUM 4.6 MEQ/L (3.5-5.1); SODIUM LEVEL 142 MEQ/L (136-145); TOTAL PROTEIN 6.7 GM/DL (6.4-8.2)
[2016-11-07 17:24] LABS: BASO # 0.1 K/mm3 (0.0-0.2); BASO % 1.8 % (0.0-1.0); EOS # 0.3 K/mm3 (0.0-0.50); EOS % 9.7 % (0.0-3.0); LARGE UNSTAINED CELL # 0.1 K/mm3 (0.0-0.4); LARGE UNSTAINED CELL % 2.8 % (0.0-4.0); LYMPH % 30.4 % (24.0-44.0); MEAN CORPUSCULAR HEMOGLOBIN 30.3 pg (27.0-33.0); MEAN CORPUSCULAR HGB CONC 34.7 g/dl (32.0-36.5); MEAN CORPUSCULAR VOLUME 87.5 fl (80.0-96.0); MONO # 0.2 K/mm3 (0.0-0.8); MONO % 6.2 % (0.0-5.0); NEUTROPHILS # 1.6 K/mm3 (1.8-7.7); NEUTROPHILS % 49.2 % (36.0-66.0); PLATELET COUNT, AUTOMATED 149 k/mm3 (150-450); WHITE BLOOD COUNT 3.2 K/mm3 (4.0-10.0)
== END ==
LOC: M SFHCSACK 08:35
PROVIDERS: ATTEND Physician Assistant
DX: I10 Essential (primary) hypertension (principal); E11.9 Type 2 diabetes mellitus without complications

== ENCOUNTER → 2017-02-20 | Outpatient (REF) | payer OTHER ==
[2017-02-20 15:18] LABS: BASO # 0.1 10^3/uL (0.0-0.2); EOS # 0.8 10^3/uL (0.0-0.50); EOS % 15.5 % (0.0-3.0); IMMATURE GRANULOCYTE % 0.2 % (0-0); LYMPH # 1.4 10^3/uL (1.5-4.5); LYMPH % 26.7 % (24.0-44.0); MEAN CORPUSCULAR HEMOGLOBIN 28.8 pg (27.0-33.0); MEAN CORPUSCULAR HGB CONC 33.1 g/dl (32.0-36.5); MONO # 0.3 10^3/uL (0.0-0.8); MONO % 6.3 % (0.0-5.0); NEUTROPHILS # 2.6 10^3/uL (1.8-7.7); NEUTROPHILS % 50.3 % (36.0-66.0); PLATELET COUNT, AUTOMATED 129 10^3/uL (150-450); RED CELL DISTRIBUTION WIDTH 13.8 % (11.5-14.5); WHITE BLOOD COUNT 5.2 10^3/uL (4.0-10.0)
[2017-02-20 15:31] LABS: ALBUMIN 4.3 GM/DL (3.2-5.2); ALBUMIN/GLOBULIN RATIO 1.43 (1.00-1.93); ALKALINE PHOSPHATASE 89 U/L (45-117); ALT/SGPT 25 U/L (12-78); ANION GAP 11 MEQ/L (8-16); AST/SGOT 13 U/L (7-37); BILIRUBIN,TOTAL 0.3 MG/DL (0.2-1.0); BLOOD UREA NITROGEN 24 MG/DL (7-18); CALCIUM LEVEL 8.2 MG/DL (8.8-10.2); CARBON DIOXIDE LEVEL 24 MEQ/L (21-32); CHLORIDE LEVEL 106 MEQ/L (98-107); CREATININE FOR GFR 1.12 MG/DL (0.70-1.30); GLOMERULAR FILTRATION RATE > 60.0 (>49); GLUCOSE, FASTING 183 MG/DL (80-110); POTASSIUM SERUM 4.1 MEQ/L (3.5-5.1); SODIUM LEVEL 141 MEQ/L (136-145); TOTAL PROTEIN 7.3 GM/DL (6.4-8.2)
== END ==
LOC: M SFHCSACK 08:06
PROVIDERS: ATTEND Physician Assistant
DX: E55.9 Vitamin D deficiency, unspecified (principal); I10 Essential (primary) hypertension; E11.9 Type 2 diabetes mellitus without complications

== ENCOUNTER → 2017-03-25 | Outpatient (REF) | payer MEDICARE, OTHER ==
[2017-03-25 13:54] LABS: REASON FOR REVIEW COMPREHENSIVE REVIEW; SLIDE REVIEW Report; SOURCE PERIPHERAL SMEAR
[2017-03-25 14:25] LABS: ERYTHROCYTE SEDIMENTATION RATE 1 mm/hr (0-20)
[2017-03-25 14:27] LABS: HEPATITIS B SURFACE ANTIBODY POSITIVE (POSITIVE)
[2017-03-25 14:38] LABS: HEPATITIS B SURFACE ANTIGEN NEGATIVE (NEGATIVE)
[2017-03-25 15:05] LABS: HEPATITIS C VIRUS ABY INDEX 0.1 INDEX (<0.8)
[2017-03-25 15:06] LABS: HIV 1&2 SCREEN CENTAUR NEGATIVE (NEGATIVE)
[2017-03-28 00:07] LABS: ANTINUCLEAR ANTIBODIES DIRECT Negative (Negative); CARDIOLIPIN IGA ANTIBODY <9 APL U/mL (0-11); CARDIOLIPIN IGG ANTIBODY <9 GPL U/mL (0-14); CARDIOLIPIN IGM ANTIBODY <9 MPL U/mL (0-12)
== END ==
LOC: M LAB REF 12:58
DX: D69.6 Thrombocytopenia, unspecified (principal); D72.819 Decreased white blood cell count, unspecified; D72.1 Eosinophilia
CPT/HCPCS: 86706

== ENCOUNTER → 2017-03-27 | Outpatient (CLI) | payer MEDICARE, OTHER | LOC: M RAD 07:49 | DX: D69.6 Thrombocytopenia, unspecified (principal); Z79.899 Other long term (current) drug therapy; K76.0 Fatty (change of) liver, not elsewhere classified; R16.2 Hepatomegaly with splenomegaly, not elsewhere classified; I86.8 Varicose veins of other specified sites | CPT/HCPCS: 76700 ==

== ENCOUNTER → 2017-05-25 | Outpatient (REF) | payer OTHER ==
[2017-05-25 14:20] LABS: BASO # 0.1 10^3/uL (0.0-0.2); BASO % 1.4 % (0.0-1.0); EOS # 0.4 10^3/uL (0.0-0.50); EOS % 9.2 % (0.0-3.0); HEMATOCRIT 50.7 % (42.0-52.0); HEMOGLOBIN 16.8 g/dl (14.0-18.0); IMMATURE GRANULOCYTE % 0.2 % (0-3.0); LYMPH # 1.2 10^3/uL (1.5-4.5); LYMPH % 28.9 % (24.0-44.0); MEAN CORPUSCULAR HEMOGLOBIN 28.9 pg (27.0-33.0); MEAN CORPUSCULAR HGB CONC 33.1 g/dl (32.0-36.5); MEAN CORPUSCULAR VOLUME 87.3 fl (80.0-96.0); MONO # 0.3 10^3/uL (0.0-0.8); MONO % 7.8 % (0.0-5.0); NEUTROPHILS # 2.2 10^3/uL (1.8-7.7); NEUTROPHILS % 52.5 % (36.0-66.0); PLATELET COUNT, AUTOMATED 160 10^3/uL (150-450); RED BLOOD COUNT 5.81 10^6/uL (4.30-6.10); RED CELL DISTRIBUTION WIDTH 13.9 % (11.5-14.5); WHITE BLOOD COUNT 4.3 10^3/uL (4.0-10.0)
[2017-05-25 14:39] LABS: TOTAL 25(OH) VITAMIN D 64.4 NG/ML (30.0-100.0)
[2017-05-25 14:41] LABS: ALBUMIN 4.2 GM/DL (3.2-5.2); ALBUMIN/GLOBULIN RATIO 1.35 (1.00-1.93); ALKALINE PHOSPHATASE 81 U/L (45-117); ALT/SGPT 22 U/L (12-78); ANION GAP 9 MEQ/L (8-16); AST/SGOT 12 U/L (7-37); BILIRUBIN,TOTAL 0.4 MG/DL (0.2-1.0); BLOOD UREA NITROGEN 23 MG/DL (7-18); CALCIUM LEVEL 8.7 MG/DL (8.8-10.2); CARBON DIOXIDE LEVEL 28 MEQ/L (21-32); CHLORIDE LEVEL 106 MEQ/L (98-107); CHOLESTEROL LEVEL 160 MG/DL (<200); CHOLESTEROL RISK RATIO 4.102 (<5); CREATININE FOR GFR 1.18 MG/DL (0.70-1.30); GLOMERULAR FILTRATION RATE > 60.0 (>49); GLUCOSE, FASTING 94 MG/DL (70-100); HDL CHOLESTEROL 39 MG/DL (>40); NON-HDL-C 121 MG/DL; POTASSIUM SERUM 4.1 MEQ/L (3.5-5.1); SODIUM LEVEL 143 MEQ/L (136-145); TOTAL PROTEIN 7.3 GM/DL (6.4-8.2); TRIGLYCERIDES LEVEL 140 MG/DL (<150)
== END ==
LOC: M SFHCSACK 08:11
DX: D69.6 Thrombocytopenia, unspecified (principal); E78.2 Mixed hyperlipidemia; E55.9 Vitamin D deficiency, unspecified

== ENCOUNTER → 2017-07-31 | Outpatient (REF) | payer MEDICARE, OTHER ==
[2017-07-31 12:29] LABS: BASO % 0.9 % (0.0-1.0); EOS # 0.3 10^3/uL (0.0-0.50); EOS % 7.6 % (0.0-3.0); HEMATOCRIT 49.7 % (42.0-52.0); HEMOGLOBIN 16.3 g/dl (13.5-17.5); IMMATURE GRANULOCYTE % 0.2 % (0-3.0); LYMPH # 1.2 10^3/uL (1.5-4.5); LYMPH % 28.1 % (24.0-44.0); MEAN CORPUSCULAR HEMOGLOBIN 28.9 pg (27.0-33.0); MEAN CORPUSCULAR HGB CONC 32.8 g/dl (32.0-36.5); MEAN CORPUSCULAR VOLUME 88.1 fl (80.0-96.0); MONO # 0.4 10^3/uL (0.0-0.8); MONO % 8.5 % (0.0-5.0); NEUTROPHILS # 2.3 10^3/uL (1.8-7.7); NEUTROPHILS % 54.7 % (36.0-66.0); PLATELET COUNT, AUTOMATED 139 10^3/uL (150-450); RED BLOOD COUNT 5.64 10^6/uL (4.30-6.10); RED CELL DISTRIBUTION WIDTH 13.9 % (11.5-14.5); WHITE BLOOD COUNT 4.2 10^3/uL (4.0-10.0)
[2017-07-31 12:58] LABS: TOTAL 25(OH) VITAMIN D 49.3 NG/ML (30.0-100.0)
[2017-07-31 13:00] LABS: ALBUMIN 4.2 GM/DL (3.2-5.2); ALBUMIN/GLOBULIN RATIO 1.45 (1.00-1.93); ALKALINE PHOSPHATASE 84 U/L (45-117); ALT/SGPT 31 U/L (12-78); ANION GAP 8 MEQ/L (8-16); AST/SGOT 17 U/L (7-37); BILIRUBIN,TOTAL 0.4 MG/DL (0.2-1.0); BLOOD UREA NITROGEN 23 MG/DL (7-18); CALCIUM LEVEL 8.5 MG/DL (8.8-10.2); CARBON DIOXIDE LEVEL 26 MEQ/L (21-32); CHLORIDE LEVEL 108 MEQ/L (98-107); CREATININE FOR GFR 1.16 MG/DL (0.70-1.30); GLOMERULAR FILTRATION RATE > 60.0 (>49); GLUCOSE, FASTING 141 MG/DL (70-100); POTASSIUM SERUM 4.2 MEQ/L (3.5-5.1); SODIUM LEVEL 142 MEQ/L (136-145); TOTAL PROTEIN 7.1 GM/DL (6.4-8.2)
[2017-07-31 13:20] LABS: ESTIMATED AVERAGE GLUCOSE 146 MG/DL (60-110); HEMOGLOBIN A1c 6.7 %
[2017-07-31 13:26] LABS: MALB URINE SIEMENS 5.4 MG/L; MAU/CREAT RATIO 4.3 MCG/MG (0.0-30.0)
== END ==
LOC: M SFHCADAM 08:06
DX: D69.6 Thrombocytopenia, unspecified (principal); E11.9 Type 2 diabetes mellitus without complications; E55.9 Vitamin D deficiency, unspecified
CPT/HCPCS: 80053

== ENCOUNTER → 2017-11-18 | Outpatient (REF) | payer MEDICARE, OTHER ==
[2017-11-18 10:21] LABS: BASO # 0.1 10^3/uL (0.0-0.2); BASO % 1.5 % (0.0-1.0); EOS # 0.5 10^3/uL (0.0-0.50); EOS % 11.9 % (0.0-3.0); HEMATOCRIT 49.7 % (42.0-52.0); HEMOGLOBIN 16.3 g/dl (13.5-17.5); IMMATURE GRANULOCYTE % 0.2 % (0-3.0); LYMPH # 1.3 10^3/uL (1.5-4.5); LYMPH % 28.8 % (24.0-44.0); MEAN CORPUSCULAR HGB CONC 32.8 g/dl (32.0-36.5); MEAN CORPUSCULAR VOLUME 88.4 fl (80.0-96.0); MONO # 0.3 10^3/uL (0.0-0.8); MONO % 7.5 % (0.0-5.0); NEUTROPHILS # 2.3 10^3/uL (1.8-7.7); NEUTROPHILS % 50.1 % (36.0-66.0); PLATELET COUNT, AUTOMATED 147 10^3/uL (150-450); RED BLOOD COUNT 5.62 10^6/uL (4.30-6.10); RED CELL DISTRIBUTION WIDTH 13.8 % (11.5-14.5); WHITE BLOOD COUNT 4.6 10^3/uL (4.0-10.0)
[2017-11-18 11:03] LABS: ALBUMIN 4.2 GM/DL (3.2-5.2); ALKALINE PHOSPHATASE 74 U/L (45-117); ALT/SGPT 24 U/L (12-78); ANION GAP 7 MEQ/L (8-16); AST/SGOT 13 U/L (7-37); BILIRUBIN,TOTAL 0.4 MG/DL (0.2-1.0); BLOOD UREA NITROGEN 16 MG/DL (7-18); CALCIUM LEVEL 8.6 MG/DL (8.8-10.2); CARBON DIOXIDE LEVEL 27 MEQ/L (21-32); CHLORIDE LEVEL 107 MEQ/L (98-107); CREATININE FOR GFR 1.04 MG/DL (0.70-1.30); GLOMERULAR FILTRATION RATE > 60.0 (>49); GLUCOSE, FASTING 123 MG/DL (70-100); POTASSIUM SERUM 4.1 MEQ/L (3.5-5.1); SODIUM LEVEL 141 MEQ/L (136-145)
[2017-11-18 11:08] LABS: TOTAL 25(OH) VITAMIN D 49.5 NG/ML (30.0-100.0)
[2017-11-18 11:09] LABS: ESTIMATED AVERAGE GLUCOSE 131 MG/DL (60-110); HEMOGLOBIN A1c 6.2 %
== END ==
LOC: M SFHCSACK 07:52
DX: D69.6 Thrombocytopenia, unspecified (principal); E11.9 Type 2 diabetes mellitus without complications; E55.9 Vitamin D deficiency, unspecified
CPT/HCPCS: 80053

== ENCOUNTER → 2017-11-18 | Outpatient (CLI) | payer MEDICARE, OTHER ==
[2017-11-18 11:35] LABS: THYROXINE (T4) 8.9 UG/DL (4.5-12.0)
[2017-11-20 00:06] LABS: Lyme Disease IgG/IgM Antibodie <0.91 ISR (0.00-0.90); Lyme Disease IgM Ab Quantitati <0.80 index (0.00-0.79)
== END ==
LOC: M SFHCSACK 08:16
DX: R00.1 Bradycardia, unspecified (principal)
CPT/HCPCS: 84443

== ENCOUNTER → 2018-02-26 | Outpatient (REF) | payer MEDICARE, OTHER ==
[~2018-02-26] MED LIST changes: -AMLO2.5T PO; +AMLO2.5T3 PO; -ASPI325T24 PO; +ASPI325T25 PO; +LISI40TA PO; -LISI40TAB PO; +MELO15TA28 PO; -MELO15TA4 PO
[2018-02-26 15:14] LABS: BASO # 0.1 10^3/uL (0.0-0.2); BASO % 1.3 % (0.0-1.0); EOS # 0.4 10^3/uL (0.0-0.50); EOS % 8.8 % (0.0-3.0); HEMATOCRIT 50.5 % (42.0-52.0); HEMOGLOBIN 17.2 g/dl (13.5-17.5); LYMPH # 1.2 10^3/uL (1.5-4.5); LYMPH % 31.1 % (24.0-44.0); MEAN CORPUSCULAR HEMOGLOBIN 29.7 pg (27.0-33.0); MEAN CORPUSCULAR HGB CONC 34.1 g/dl (32.0-36.5); MEAN CORPUSCULAR VOLUME 87.1 fl (80.0-96.0); MONO # 0.3 10^3/uL (0.0-0.8); NEUTROPHILS # 2.1 10^3/uL (1.8-7.7); NEUTROPHILS % 51.5 % (36.0-66.0); PLATELET COUNT, AUTOMATED 156 10^3/uL (150-450)
[2018-02-26 15:27] LABS: ALBUMIN 4.3 GM/DL (3.2-5.2); ALT/SGPT 25 U/L (12-78); BILIRUBIN,TOTAL 0.4 MG/DL (0.2-1.0); BLOOD UREA NITROGEN 17 MG/DL (7-18); CALCIUM LEVEL 8.6 MG/DL (8.8-10.2); CARBON DIOXIDE LEVEL 23 MEQ/L (21-32); CHLORIDE LEVEL 105 MEQ/L (98-107); CHOLESTEROL LEVEL 147 MG/DL (<200); CHOLESTEROL RISK RATIO 3.972 (<5); FERRITIN 126 NG/ML (26-388); GLOMERULAR FILTRATION RATE > 60.0 (>49); GLUCOSE, FASTING 140 MG/DL (70-100); HDL CHOLESTEROL 37 MG/DL (>40); IRON (FE) 91 UG/DL (65-175); LDL CHOLESTEROL 87 MG/DL (<100); NON-HDL-C 110 MG/DL; PERCENT SATURATION 26.8 % (19.7-50.0); POTASSIUM SERUM 4.3 MEQ/L (3.5-5.1); SODIUM LEVEL 139 MEQ/L (136-145); TOTAL IRON BINDING CAPACITY 340 UG/DL (250-450); TOTAL PROTEIN 7.1 GM/DL (6.4-8.2); TRIGLYCERIDES LEVEL 113 MG/DL (<150)
[2018-02-26 15:38] LABS: HEMOGLOBIN A1c 7.3 %
[2018-02-26 15:51] LABS: TOTAL 25(OH) VITAMIN D 47.8 NG/ML (30.0-100.0)
== END ==
LOC: M SFHCSACK 08:57
PROVIDERS: ATTEND Physician Assistant
DX: D69.6 Thrombocytopenia, unspecified (principal); E78.2 Mixed hyperlipidemia; E11.9 Type 2 diabetes mellitus without complications; Z12.5 Encounter for screening for malignant neoplasm of prostate; E55.9 Vitamin D deficiency, unspecified
CPT/HCPCS: 36415; 80053; 80061; 80188; 82306; 82728; 83036; 83550; 85025; G0103

== ENCOUNTER → 2018-02-26 | Outpatient (REF) | payer OTHER ==
[2018-02-26 15:16] LABS: BASO # 0.1 10^3/uL (0.0-0.2); BASO % 1.3 % (0.0-1.0); EOS # 0.4 10^3/uL (0.0-0.50); EOS % 9.2 % (0.0-3.0); HEMOGLOBIN 17.2 g/dl (13.5-17.5); LYMPH # 1.2 10^3/uL (1.5-4.5); LYMPH % 29.8 % (24.0-44.0); MEAN CORPUSCULAR HEMOGLOBIN 29.4 pg (27.0-33.0); MEAN CORPUSCULAR HGB CONC 33.7 g/dl (32.0-36.5); MONO # 0.3 10^3/uL (0.0-0.8); MONO % 6.9 % (0.0-5.0); NEUTROPHILS # 2.1 10^3/uL (1.8-7.7); NEUTROPHILS % 52.5 % (36.0-66.0); PLATELET COUNT, AUTOMATED 154 10^3/uL (150-450); RED BLOOD COUNT 5.86 10^6/uL (4.30-6.10); WHITE BLOOD COUNT 3.9 10^3/uL (4.0-10.0)
[2018-02-26 15:25] LABS: ALBUMIN 4.4 GM/DL (3.2-5.2); ALT/SGPT 26 U/L (12-78); BILIRUBIN,TOTAL 0.4 MG/DL (0.2-1.0); BLOOD UREA NITROGEN 18 MG/DL (7-18); CALCIUM LEVEL 8.8 MG/DL (8.8-10.2); CARBON DIOXIDE LEVEL 24 MEQ/L (21-32); CHLORIDE LEVEL 105 MEQ/L (98-107); CREATININE FOR GFR 1.08 MG/DL (0.70-1.30); GLOMERULAR FILTRATION RATE > 60.0 (>49); GLUCOSE, FASTING 142 MG/DL (70-100); POTASSIUM SERUM 4.3 MEQ/L (3.5-5.1); SODIUM LEVEL 139 MEQ/L (136-145); TOTAL PROTEIN 7.1 GM/DL (6.4-8.2)
== END ==
LOC: M SFHCADAM 14:45
PROVIDERS: ATTEND Psychiatry & Neurology Neurology
DX: E11.9 Type 2 diabetes mellitus without complications (principal)

== ENCOUNTER → 2018-09-08 | Outpatient (REF) | payer MEDICARE, OTHER ==
[~2018-09-08] MED LIST changes: +ASPI-255 PO; -ASPI325T25 PO; +LEVE1INJ5 SC
[2018-09-08 14:47] LABS: BASO # 0.1 10^3/uL (0.0-0.2); BASO % 1.5 % (0.0-1.0); EOS # 0.3 10^3/uL (0.0-0.50); EOS % 7.7 % (0.0-3.0); HEMATOCRIT 50.3 % (42.0-52.0); HEMOGLOBIN 16.6 g/dl (13.5-17.5); LYMPH # 1.2 10^3/uL (1.5-4.5); LYMPH % 29.1 % (24.0-44.0); MEAN CORPUSCULAR HEMOGLOBIN 29.7 pg (27.0-33.0); MONO # 0.4 10^3/uL (0.0-0.8); MONO % 8.9 % (0.0-5.0); NEUTROPHILS # 2.1 10^3/uL (1.8-7.7); NEUTROPHILS % 52.6 % (36.0-66.0); PLATELET COUNT, AUTOMATED 134 10^3/uL (150-450); RED BLOOD COUNT 5.59 10^6/uL (4.30-6.10); WHITE BLOOD COUNT 4.1 10^3/uL (4.0-10.0)
[2018-09-08 14:54] LABS: ALT/SGPT 26 U/L (12-78); BILIRUBIN,TOTAL 0.5 MG/DL (0.2-1.0); BLOOD UREA NITROGEN 20 MG/DL (7-18); CALCIUM LEVEL 8.4 MG/DL (8.8-10.2); CARBON DIOXIDE LEVEL 26 MEQ/L (21-32); CHLORIDE LEVEL 107 MEQ/L (98-107); CREATININE FOR GFR 0.99 MG/DL (0.70-1.30); FOLATE 8.6 NG/ML; GLOMERULAR FILTRATION RATE > 60.0 (>49); GLUCOSE, FASTING 162 MG/DL (70-100); POTASSIUM SERUM 4.6 MEQ/L (3.5-5.1); SODIUM LEVEL 140 MEQ/L (136-145); TOTAL 25(OH) VITAMIN D 34.6 NG/ML (30.0-100.0); TOTAL PROTEIN 6.8 GM/DL (6.4-8.2); VITAMIN B12 LEVEL 473 PG/ML
== END ==
LOC: M LABDRWSH 14:20
PROVIDERS: ATTEND Psychiatry & Neurology Neurology
DX: R25.1 Tremor, unspecified (principal); E55.9 Vitamin D deficiency, unspecified; E53.8 Deficiency of other specified B group vitamins; Z51.81 Encounter for therapeutic drug level monitoring

== ENCOUNTER → 2018-09-08 | Outpatient (REF) | payer MEDICARE, OTHER ==
[2018-09-08 14:40] LABS: BASO # 0.1 10^3/uL (0.0-0.2); BASO % 1.2 % (0.0-1.0); EOS # 0.3 10^3/uL (0.0-0.50); EOS % 8.5 % (0.0-3.0); HEMATOCRIT 50.3 % (42.0-52.0); HEMOGLOBIN 16.7 g/dl (13.5-17.5); LYMPH # 1.1 10^3/uL (1.5-4.5); LYMPH % 27.4 % (24.0-44.0); MEAN CORPUSCULAR HEMOGLOBIN 29.9 pg (27.0-33.0); MEAN CORPUSCULAR HGB CONC 33.2 g/dl (32.0-36.5); MEAN CORPUSCULAR VOLUME 90.1 fl (80.0-96.0); MONO # 0.3 10^3/uL (0.0-0.8); MONO % 8.2 % (0.0-5.0); NEUTROPHILS # 2.2 10^3/uL (1.8-7.7); NEUTROPHILS % 54.5 % (36.0-66.0); PLATELET COUNT, AUTOMATED 132 10^3/uL (150-450); RED BLOOD COUNT 5.58 10^6/uL (4.30-6.10)
[2018-09-08 14:54] LABS: ALT/SGPT 27 U/L (12-78); BILIRUBIN,TOTAL 0.4 MG/DL (0.2-1.0); BLOOD UREA NITROGEN 20 MG/DL (7-18); CALCIUM LEVEL 8.4 MG/DL (8.8-10.2); CARBON DIOXIDE LEVEL 26 MEQ/L (21-32); CHLORIDE LEVEL 107 MEQ/L (98-107); CHOLESTEROL LEVEL 154 MG/DL (<200); CHOLESTEROL RISK RATIO 3.581 (<5); FERRITIN 110 NG/ML (26-388); GLOMERULAR FILTRATION RATE > 60.0 (>49); GLUCOSE, FASTING 163 MG/DL (70-100); HDL CHOLESTEROL 43 MG/DL (>40); IRON (FE) 83 UG/DL (65-175); LDL CHOLESTEROL 91 MG/DL (<100); NON-HDL-C 111 MG/DL; PERCENT SATURATION 24.8 % (19.7-50.0); POTASSIUM SERUM 4.7 MEQ/L (3.5-5.1); SODIUM LEVEL 141 MEQ/L (136-145); TOTAL IRON BINDING CAPACITY 335 UG/DL (250-450); TOTAL PROTEIN 6.9 GM/DL (6.4-8.2); TRIGLYCERIDES LEVEL 99 MG/DL (<150)
[2018-09-08 15:00] LABS: HEMOGLOBIN A1c 7.2 %
== END ==
LOC: M SFHCSACK 08:05
PROVIDERS: ATTEND Physician Assistant
DX: I10 Essential (primary) hypertension (principal); E78.2 Mixed hyperlipidemia; D69.6 Thrombocytopenia, unspecified; E11.9 Type 2 diabetes mellitus without complications; E55.9 Vitamin D deficiency, unspecified; R25.1 Tremor, unspecified; E53.8 Deficiency of other specified B group vitamins; Z51.81 Encounter for therapeutic drug level monitoring

== ENCOUNTER → 2018-10-25 | Outpatient (REF) | payer MEDICARE, OTHER ==
[2018-10-25 14:23] LABS: CREATININE, URINE 92.6 MG/DL; MALB URINE SIEMENS 5.6 MG/L
== END ==
LOC: M LABDRAW1 12:08
PROVIDERS: ATTEND Nurse Practitioner Family
DX: E11.9 Type 2 diabetes mellitus without complications (principal)

== ENCOUNTER → 2018-11-03 | Outpatient (REF) | payer MEDICARE, OTHER ==
[2018-11-14 14:06] LABS: ACETYLCHOLINE RCPTOR BINDING A 0.07 nmol/L (0.00-0.24); ACETYLCHOLINE RCPTOR BLOCK AB 15 % (0-25); ACETYLCHOLINE RCPTOR MODULATIN <12 % (0-20); STRIATIONAL ANTIBODIES Negative (Neg:<1:40); VGCC ANTIBODY Negative (Negative)
== END ==
LOC: M LABNEURO 14:24
PROVIDERS: ATTEND Psychiatry & Neurology Neurology
DX: H02.409 Unspecified ptosis of unspecified eyelid (principal); H53.2 Diplopia; H53.8 Other visual disturbances